=== PATIENT | female | born 1945 | race American Indian/Alaskan Native ===

== ENCOUNTER 2018-01-21 21:51 | Emergency (ER) | payer MEDICARE, OTHER ==
[2018-01-21 21:59] VITALS: BP 177/78
[2018-01-21] MEDS ORDERED: TYLENOL #3 PO ONE (22:37)
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
--- NOTE | 2018-01-21 23:20 | XRay Report ---
FINAL REPORT PROCEDURE: XR ANKLE 3+V RT TECHNIQUE: RIGHT ankle radiographs, AP, lateral, and oblique views. CPT 75319 HISTORY: ankle pain swelling COMPARISON: No prior studies are available for comparison. FINDINGS: Fracture (s) and/or Dislocation(s): None. Alignment: Normal. Joint space(s): Normal. Soft tissues: Normal. Bone mineralization: Normal. Foreign bodies: None. Calcaneal spurring: Large calcaneal spur seen at the plantar fascia insertion site.. IMPRESSION: Large calcaneal spur visualized otherwise negative exam..
== END 2018-01-21 23:33 | disposition home or self-care (01) ==
LOC: ED 21:51
DX: S93.401A Sprain of unspecified ligament of right ankle, initial encounter (principal); M25.471 Effusion, right ankle; V49.49XA Driver injured in collision with other motor vehicles in traffic accident, initial encounter; I10 Essential (primary) hypertension; J45.909 Unspecified asthma, uncomplicated; Z90.710 Acquired absence of both cervix and uterus; Y93.89 Activity, other specified; Y92.89 Other specified places as the place of occurrence of the external cause; Y99.8 Other external cause status
CPT/HCPCS: 99284